=== PATIENT | female | born 1975 | race Caucasian/White ===

== ENCOUNTER → 2019-02-12 | Outpatient (CLI) | payer OTHER ==
[~2019-02-12] MED LIST: GABA100C PO
[2019-02-12 12:26] LABS: BASOPHILS # (AUTO) 0.09 x10^3/uL (0-0.1); BASOPHILS % (AUTO) 1 % (0-1); EOSINOPHILS # (AUTO) 0.11 x10^3/uL (0-0.4); EOSINOPHILS % (AUTO) 1 % (1-7); LYMPHOCYTES # (AUTO) 2.41 x10^3/uL (1-3.4); LYMPHOCYTES % (AUTO) 25 % (22-44); MD NO; MEAN CORPUSCULAR HEMOGLOBIN 30.8 pg (27.0-34.8); MEAN CORPUSCULAR HGB CONC 33.5 g/dL (32.4-35.8); MEAN CORPUSCULAR VOLUME 92.1 fL (80-100); MEAN PLATELET VOLUME 8.9 fL (7.4-10.4); MONOCYTES # (AUTO) 0.77 x10^3/uL (0.2-0.8); MONOCYTES % (AUTO) 8 % (2-9); NEUTROPHILS # (AUTO) 6.46 x10^3/uL (1.8-6.8); NEUTROPHILS % (AUTO) 66 % (42-75); PLATELET COUNT 300 x10^3/uL (130-400); RED BLOOD COUNT 4.61 x10^6/uL (3.82-5.3); RED CELL DISTRIBUTION WIDTH 13.1 % (9.6-15.2)
[2019-02-12 12:37] LABS: INTERNATIONAL NORMALIZED RATIO 1.02 (0.93-1.1); PROTHROMBIN TIME 10.7 Seconds (9.6-11.5)
[2019-02-12 12:38] LABS: ALANINE AMINOTRANSFERASE 24 U/L (12-78); ANION GAP 6 mmol/L (5-15); CALCIUM 8.6 mg/dL (8.5-10.1); CHLORIDE 107 mmol/L (98-107); CREATININE 1.01 mg/dL (0.55-1.02)
[2019-02-12 12:40] LABS: ALKALINE PHOSPHATASE 77 U/L (45-117); BILIRUBIN,TOTAL 0.3 mg/dL (0.2-1.0); TOTAL PROTEIN 7.6 g/dL (6.4-8.2)
[2019-02-12 12:52] LABS: MICROSCOPIC NOT IND
[2019-02-12 12:54] LABS: CULTURE INDICATED? NO
== END | disposition home or self-care (01) ==
LOC: STAR 11:33
PROVIDERS: ATTEND Orthopaedic Surgery Orthopaedic Surgery of the Spine
DX: Z01.818 Encounter for other preprocedural examination (principal); M51.26 Other intervertebral disc displacement, lumbar region; J98.4 Other disorders of lung
CPT/HCPCS: 36415; 71046; 80053; 81003; 85025; 85610; 85730; 93005

== ENCOUNTER 2019-02-15 05:45 | Day surgery (SDC) | payer OTHER ==
[~2019-02-15] VITALS: Ht 167.6 cm; Wt 84.0 kg
[2019-02-15] MEDS ORDERED: LACTATED RINGERS 1,000 ML IV SCH (06:27)
[2019-02-15 06:30] VITALS: BP 115/74
[2019-02-15] MEDS ORDERED: BUPIVACAINE/PF 0.25% ONE (06:37)
[2019-02-15] MEDS ORDERED: LIDOCAINE/PF 0.5% ,50ML ONE (06:37)
[2019-02-15] MEDS ORDERED: VANCOMYCIN 1,000 MG ONE ×2 (06:38→06:45)
[2019-02-15] MEDS ORDERED: THROMBIN 5,000 UNIT VIAL TP ONE (06:38)
[2019-02-15] MEDS ORDERED: EPINEPHRINE 1 MG/ML, 1ML ONE (06:38)
[2019-02-15] MEDS ORDERED: TOBRAMYCIN SULFATE 1.2 GM IMP ONE (06:45)
[2019-02-15 06:47] LABS: HCG UR SG 1.023 (1.003-1.030)
[2019-02-15] MEDS ORDERED: ONDANSETRON ODT 8 MG PO ONE (07:00)
[2019-02-15] MEDS ORDERED: PROPOFOL 50 ML ONE ×2 (07:14→08:27)
[2019-02-15] MEDS ORDERED: FENTANYL PF 250 MCG/5ML ONE (07:15)
[2019-02-15] MEDS ORDERED: MIDAZOLAM 1 MG/ML, 2ML ONE (07:15)
[2019-02-15] MEDS ORDERED: DEXAMETHASONE 4 MG/ML, 1ML ONE (07:42)
[2019-02-15] MEDS ORDERED: ROCURONIUM 10 MG/ML,10ML ONE (07:42)
[2019-02-15] MEDS ORDERED: ONDANSETRON 2MG/ML, 2ML ONE (07:42)
[2019-02-15] MEDS ORDERED: SUCCINYLCHOLINE 20 MG/ML, 10ML ONE (07:42)
[2019-02-15] MEDS ORDERED: DIAZEPAM 5 MG/ML, 2ML IVPush PRN (09:00)
[2019-02-15] MEDS ORDERED: MIDAZOLAM 1 MG/ML, 2ML IV PRN (09:00)
[2019-02-15] MEDS ORDERED: PROMETHAZINE 25 MG SUPP PR PRN (09:00)
[2019-02-15] MEDS ORDERED: EPHEDRINE 50 MG/ML, 1ML IM PRN (09:00)
[2019-02-15] MEDS ORDERED: MEPERIDINE/PF 25MG/0.5ML IVPush PRN (09:00)
[2019-02-15] MEDS ORDERED: FENTANYL PF 100 MCG/2ML IV PRN (09:00)
[2019-02-15] MEDS ORDERED: PROMETHAZINE 25 MG/ML, 1ML IV PRN (09:00)
[2019-02-15] MEDS ORDERED: DIPHENHYDRAMINE 50 MG/ML, 1ML IVPush PRN (09:00)
[2019-02-15] MEDS ORDERED: OXYcodone 5 MG/5 ML ORAL.SOL UDC PO PRN (09:00)
[2019-02-15] MEDS ORDERED: HYDROmorphone 2 MG/ML, 1ML IVPush PRN (09:00)
[2019-02-15] MEDS ORDERED: PROCHLORPERAZINE 5 MG/ML, 2ML IV PRN (09:00)
[2019-02-15] MEDS ORDERED: PROMETHAZINE 12.5 MG SUPP PR PRN (09:00)
[2019-02-15] MEDS ORDERED: ONDANSETRON 2MG/ML, 2ML IV PRN (09:00)
[2019-02-15] MEDS ORDERED: FENTANYL PF 100 MCG/2ML ONE (09:21)
[2019-02-15] MEDS ORDERED: HYDROmorphone 2 MG/ML, 1ML ONE (09:21)
[2019-02-15] MEDS ORDERED: OXYcodone 5 MG/5 ML ORAL.SOL UDC ONE (09:22)
[2019-02-15] MEDS ORDERED: MEPERIDINE/PF 25MG/ML,1ML ONE (10:03)
[2019-02-15] MEDS ORDERED: DIAZEPAM 5 MG TABLET PO PRN (11:30)
== END 2019-02-15 11:35 | disposition home or self-care (01) ==
LOC: OUT 05:45
PROVIDERS: ATTEND Orthopaedic Surgery Orthopaedic Surgery of the Spine
DX: M51.17 Intervertebral disc disorders with radiculopathy, lumbosacral region (principal); E89.0 Postprocedural hypothyroidism; Z88.0 Allergy status to penicillin; Z88.8 Allergy status to other drugs, medicaments and biological substances; Z79.891 Long term (current) use of opiate analgesic; Z79.899 Other long term (current) drug therapy; Z98.890 Other specified postprocedural states
CPT/HCPCS: 63030; 72100; 81025; J0171; J0330; J1100; J2001; J2175; J2250; J2405; J2704; J3010; J3370; J3490; J7120; Q0162; J3260